=== PATIENT | male | born 1935 | race Two or more races ===

== ENCOUNTER 2019-03-28 10:18 | Inpatient (IN) | payer MEDICARE, BC ==
[~2019-03-28] VITALS: Ht 170.2 cm; Wt 83.9 kg
--- NOTE | 2019-03-28 10:24 | NUR ---
DR HUTCHINS AT BEDSIDE FOR EVAL.
[2019-03-28] MEDS ORDERED: ONDANSETRON HCL/PF 4 MG/2 ML VIAL ONE (10:28)
--- NOTE | 2019-03-28 10:29 | NUR ---
IV LINE STARTED BLOOD DRAWN AND SENT TO LAB
[2019-03-28] MEDS ORDERED: IV NS 0.9% 500 ML BAG IV ONE (10:30)
[2019-03-28] MEDS ORDERED: ONDANSETRON HCL/PF 4 MG/2 ML VIAL IVP ONE (10:30)
--- NOTE | 2019-03-28 10:32 | NUR ---
RADIOLOGY AT BEDSIDE FOR CHEST XRAY.
[2019-03-28 10:33] LABS: BASOPHILS % (AUTO) 0.5 % (0.0-2.0); EOSINOPHILS % (AUTO) 0.5 % (0.0-6.0); HEMATOCRIT 40 % (39-51); LYMPHOCYTES # (AUTO) 2.2 /CMM (0.8-4.8); LYMPHOCYTES % (AUTO) 27.9 % (20.0-44.0); MEAN CORPUSCULAR HGB CONC 35 g/dl (31.0-36.0); MEAN CORPUSCULAR VOLUME 95 fL (80-96); MONOCYTES # (AUTO) 0.7 /CMM (0.1-1.30); MONOCYTES % (AUTO) 8.7 % (2.0-12.0); NEUTROPHILS # (AUTO) 4.9 /CMM (1.8-8.9); NEUTROPHILS % (AUTO) 62.4 % (43.0-81.0); PLATELET COUNT (AUTO) 140 /CMM (150-450); RED BLOOD CELL COUNT(AUTO) 4.22 MIL/uL (4.5-6.0); WHITE BLOOD COUNT (AUTO) 7.8 K/uL (4.3-11.0)
[2019-03-28 10:40] LABS: CALCIUM, SERUM 9.2 mg/dL (8.5-10.1); CARBON DIOXIDE 28 mmol/L (21-32); CHLORIDE 102 mmol/L (98-107); CREATININE 1.3 mg/dL (0.6-1.3); GLUCOSE 143 mg/dL (74-106); POTASSIUM 4.2 mmol/L (3.5-5.1); SODIUM SERUM 138 mmol/L (136-145); UREA NITROGEN, BLOOD 23 mg/dL (7-18)
[2019-03-28 10:45] LABS: ALANINE AMINOTRANSFERASE 32 U/L (12-78); ALKALINE PHOSPHATASE 50 U/L (46-116); ASPARTATE AMINOTRANSFERASE 19 U/L (15-37); BILIRUBIN,DIRECT 0.3 mg/dL (0.0-0.2); LIPASE 137 U/L (73-393); TOTAL PROTEIN, SERUM 6.8 g/dL (6.4-8.2)
[2019-03-28] MEDS ORDERED: LORA0.5T PO (11:41)
[2019-03-28] MEDS ORDERED: OMEP40CA37 PO (11:42)
[2019-03-28] MEDS ORDERED: ASPI-1169 PO (11:42)
[2019-03-28] MEDS ORDERED: CHOL100044 PO (11:42)
[2019-03-28] MEDS ORDERED: METO-357 PO (11:42)
[2019-03-28] MEDS ORDERED: ROSU5TAB PO (11:42)
[2019-03-28] MEDS ORDERED: LACT1CAP71 PO (11:42)
[2019-03-28] MEDS ORDERED: FINA5TAB11 PO (11:42)
[2019-03-28] MEDS ORDERED: AMLO5TAB9 PO (11:42)
[2019-03-28] MEDS ORDERED: CLOP75TA15 PO (11:42)
[2019-03-28] MEDS ORDERED: GABA-532 PO (11:42)
[2019-03-28] MEDS ORDERED: MULT-24 PO (11:42)
[2019-03-28] MEDS ORDERED: MAGN400T26 PO (11:42)
[2019-03-28] MEDS ORDERED: RANO500T3 PO (11:42)
--- NOTE | 2019-03-28 12:08 | NUR ---
CALLED [facility]. PLC ENGINEER WAS PAGED
--- NOTE | 2019-03-28 12:20 | NUR ---
CALLED HOUSE SUP FOR TELE BED
[2019-03-28] MEDS ORDERED: IV NS 0.9% 1,000 ML IV PRN (12:31)
[2019-03-28] MEDS ORDERED: MAGNESIUM HYDROXIDE 30 ML UDC PO PRN (13:00)
[2019-03-28] MEDS ORDERED: OMEPRAZOLE 20 MG CAPSULE.DR PO ONE (13:00)
[2019-03-28] MEDS ORDERED: Z GUARD REMEDY 2 OZ OINT TP PRN (13:00)
[2019-03-28] MEDS ORDERED: MAG HYDROX/AL HYDROX/SIMETH 30 ML UDC PO PRN (13:00)
[2019-03-28] MEDS ORDERED: ONDANSETRON HCL/PF 4 MG/2 ML VIAL IVP PRN (13:00)
[2019-03-28] MEDS ORDERED: ACETAMINOPHEN 325 MG TABLET PO PRN (13:00)
--- NOTE | 2019-03-28 13:14 | NUR ---
REPORT GIVEN TO BINU RACHEL. AWAITING TRANSFER.
[2019-03-28 13:50] VITALS: BP 155/78
[2019-03-28] MEDS ORDERED: PANTOPRAZOLE 40 MG VIAL IV SCH (14:30)
--- NOTE | 2019-03-28 14:56 | NUR ---
PIPELINES SUPERVISOR ADMITTING NOTES PT ADMITTED TO UNIT AT 1345 VIA GURNEY ACCOMPANIED BY ER NURSE ANGELITA AND PT'S FAMILY. PT IS A/O X4. ABLE TO MAKE NEEDS KNOWN, NO C/O PAIN, N & V @ THIS TIME. PT IS ON ROOM AIR, BREATHING EVEN AND UNLABORED. PT ORIENTED TO UNIT, ROOM AND STAFF. V/S TAKEN AND RECORDED. PHYSICAL ASSESSMENT DONE. PT WITH NO SKIN ISSUES. ABDOMEN SOFT, NON-TENDER AND NON DISTENDED WITH + BOWEL SOUNDS ON FOUR QUADRANTS. LUNGS CLEAR BILATERALLY ON AUSCULTATION. ABLE TO MOVE ALL FOUR EXTREMITIES W/O PROBLEMS. PT WITH IV ACCESS ON RFA G #18 INTACT AND PATENT, IVF OF NS @ 75ML/HR STARTED, NO S/S OF REDNESS OR INFILTRATIONS AT SITE NOTED. PT PLACED ON TELEMONITORING WITH CURRENT READING OF SR WITH 1ST DECREE HEART BLOCK AND OCCASIONAL PAC.S WITH HR ON THE 60'S, NO C/O CARDIAC DISTRESS VOICED. BED LACED ON LOW LOCKED POSITION WITH UPPER RAILS UP. CALL LIGHT PLACED WITHIN EASY OF PT. WILL CONTINUE TO MONITOR ACCORDINGLY.
[2019-03-28 15:35] VITALS: BP 129/61
[2019-03-28] MEDS ORDERED: RANOLAZINE PO SCH (17:00)
[2019-03-28] MEDS ORDERED: MAGNESIUM OXIDE 400 MG TABLET PO SCH (17:00)
--- NOTE | 2019-03-28 18:06 | NUR ---
RN NOTES INFORMED FREEDOM TURK AND FREEDOM ARMSTRONG OF PT'S U/S ABDOMEN RESULTS. FREEDOM ARMSTRONG AND FREEDOM TURK WITH ORDER TO PUT PT ON REGULAR DIET FOR NOW AND MONITOR FOR ANY NAUSEA AND VOMITTING. IF PT WILL VOMIT IN 1-2 HRS. WILL INFORMED FREEDOM TURK. WILL CONTINUE TO MONITOR.
--- NOTE | 2019-03-28 18:40 | NUR ---
AUTOMATIC BEAM WARPER TENDER CLOSING NOTES PT SITTING IN CHAIR BY BEDSIDE AT THIS TIME WITH IN ROOM. A/O X 4, SAME ABLE TO MAKE NEEDS KNOWN AND AMBULATORY. ON ROOM AIR, TOLERATING WELL WITH NO SOB NOTED. PT TOLERATING REGULAR DIET GIVEN AT DINNER TIME, NO C/O PAIN, N &V AT THIS TIME. IV ACCESS ON RFA G#18 PATENT AND INTACT, IVF OF NS @75ML/HR INFUSING WELL, NO REDNESS OR INFILTRATIONS NOTED. ALL NEEDS AND CARE ATTENDED WELL. CALL LIGHT WITHIN EASY REACH OF PT. WILL ENDORSE TO INCIDENT RESPONSE ENGINEER NURSE FOR DIONNE Addendum: 03/28/19 at 1902 by MARIE GUZMAN RN ADDENDUM: PT ON TELE-MONITORING WITH CURRENT READING OF SR WITH 1ST DEGREE HEART BLOCK WITH OCCASIONAL PAC'S, HR ON THE 60'S. NO C/O CARDIAC DISTRESS VOICED. MONITORING CONTINUES
--- NOTE | 2019-03-28 19:30 | NUR ---
[employer]ANCIAL [employer] OPENING NOTES RECEIVED PATIENT IN CHAIR AT THE BEDSIDE. A/O X4. TOLERATING ROOM AIR. NO SOB NOTED. RESPIRATIONS ARE EVEN AND UNLABORED. EXTERNAL TELE MONITOR READS SR WITH PVC HR 65. IV ACCESS IN RFA G#18 PATENT AND RUNNING IVF OF NS @75ML/HR. DENIES PAIN AT THIS TIME. PATIENT IS TOLERATING REGULAR DIET WITH NO N/V AT THIS TIME. AT THE BEDSIDE. BED IS LOW AND LOCKED. CALL LIGHT WITHIN REACH. WILL CONTINUE TO MONITOR.
[2019-03-28 19:46] LABS: APPEARANCE,URINE CLEAR (CLEAR); BILIRUBIN,URINE NEGATIVE (NEGATIVE); BLOOD, URINE NEGATIVE Ery/uL (NEGATIVE); COLOR,URINE YELLOW (YELLOW); KETONES,URINE NEGATIVE (NEGATIVE); LEUKOCYTE ESTERASE ,URINE NEGATIVE (NEGATIVE); NITRITE, URINE NEGATIVE (NEGATIVE); PH,URINE 7.5 (5.0-8.0); PROTEIN,URINE NEGATIVE (NEGATIVE); UGLUCOSE NEGATIVE (NEGATIVE); UROBILINOGEN,URINE 0.2 EU/dL (0.2)
[2019-03-28 20:00] VITALS: BP 117/63
--- NOTE | 2019-03-28 20:25 | NUR ---
CONTAINER SHOP WELDER CLOSING NOTE PATIENT TOLERATED REGULAR DIET FOR 2 HOURS WITHOUT N/V. TROPONIN LEVEL NEGATIVE. PATIENT WANTS TO LEAVE AMA. VS STABLE. BELONGINGS LIST SIGNED. AMA FORM SIGNED. IV AND NAME BAND REMOVED. PATIENT AND AMBULATED OUT OF HOSPITAL WITH NO SIGNS OF DISTRESS.
[2019-03-28] MEDS ORDERED: METOPROLOL SUCCINATE 50 MG TAB.SR.24H PO SCH (21:00)
[2019-03-28] MEDS ORDERED: GABAPENTIN 100 MG CAPSULE PO SCH (22:00)
[2019-03-28] MEDS ORDERED: LORAZEPAM 0.5 MG TABLET PO SCH (22:00)
[2019-03-29] MEDS ORDERED: Medication Not On Formulary EA (Omeprazole 40 MG) PO SCH (07:30)
[2019-03-29] MEDS ORDERED: ATORVASTATIN 10 MG TABLET PO SCH (09:00)
[2019-03-29] MEDS ORDERED: ASPIRIN 81 MG TAB.CHEW PO SCH (09:00)
[2019-03-29] MEDS ORDERED: FINASTERIDE (5 MG) 5 MG TABLET PO SCH (09:00)
[2019-03-29] MEDS ORDERED: AMLODIPINE BESYLATE 5 MG TABLET PO SCH (09:00)
[2019-03-29] MEDS ORDERED: CLOPIDOGREL BISULFATE 75 MG TABLET PO SCH (09:00)
[2019-03-29] MEDS ORDERED: CHOLECALCIFEROL 1,000 UNIT TABLET (VIT D3) PO SCH (09:00)
[2019-03-29] MEDS ORDERED: LACTOBACILLUS RHAMNOSUS GG 1 EACH CAP.SPRINK PO SCH (09:00)
[2019-03-29] MEDS ORDERED: MULTIVITAMINS,THERAGRAN 1 UDTAB TABLET PO SCH (09:00)
== END 2019-03-28 20:20 | disposition left against medical advice (07) | DRG 446 ==
LOC: ER 10:20 → TELE 13:07 → EDBD 13:07
PROVIDERS: ADMIT Registered Nurse; ATTEND Registered Nurse
DX: K81.0 Acute cholecystitis (principal); A08.4 Viral intestinal infection, unspecified; K81.1 Chronic cholecystitis; R11.2 Nausea with vomiting, unspecified; R53.1 Weakness; K21.9 Gastro-esophageal reflux disease without esophagitis; I25.10 Atherosclerotic heart disease of native coronary artery without angina pectoris; Z95.5 Presence of coronary angioplasty implant and graft; I10 Essential (primary) hypertension; N40.0 Benign prostatic hyperplasia without lower urinary tract symptoms; E78.5 Hyperlipidemia, unspecified; F41.9 Anxiety disorder, unspecified; E66.9 Obesity, unspecified; Z68.29 Body mass index [BMI] 29.0-29.9, adult; Z79.02 Long term (current) use of antithrombotics/antiplatelets; E86.0 Dehydration
CPT/HCPCS: 36415; 71045-TC; 76700-TC; 80048-TC; 80076-TC; 81000-TC; 83690-TC; 84484-TC; 85025-TC; 87081-TC; C9113; G0378; J2405; J7030; J7040